=== PATIENT | male | born 1995 | race Hispanic/Latino ===

== ENCOUNTER 2024-01-16 19:27 | Emergency (ER) | payer BC, OTHER ==
[2024-01-16] MEDS ORDERED: Famotidine/PF 20 mg/2ml Vial ONE (19:44)
[2024-01-16] MEDS ORDERED: Lidocaine 2% Viscous 10 mL, Alum & Magn 30 mL SSW SCH (20:45)
== END 2024-01-16 21:09 | disposition home or self-care (01) ==
LOC: CSHERS 19:27
DX: R10.13 Epigastric pain (principal); R11.2 Nausea with vomiting, unspecified
CPT/HCPCS: 71045; 93005; 96374; S0028